=== PATIENT | female | born 1960 | race Caucasian/White ===

== ENCOUNTER 2017-05-22 13:39 | Emergency (ER) | payer OTHER ==
[~2017-05-22] VITALS: Ht 149.9 cm; Wt 68.0 kg
[2017-05-22 14:50] VITALS: Ht 149.9 cm; Wt 68.0 kg
[2017-05-22 17:32] VITALS: BP 127/78
== END 2017-05-22 17:32 | disposition home or self-care (01) ==
LOC: ED 13:39
DX: S01.511A Laceration without foreign body of lip, initial encounter (principal); J45.909 Unspecified asthma, uncomplicated; W54.0XXA Bitten by dog, initial encounter; Y93.89 Activity, other specified; Y99.8 Other external cause status; Y92.89 Other specified places as the place of occurrence of the external cause
CPT/HCPCS: J2001; J3010

== ENCOUNTER 2017-05-24 09:46 | Emergency (ER) | payer OTHER ==
[~2017-05-24] VITALS: Ht 154.9 cm; Wt 67.6 kg
[2017-05-24 09:50] VITALS: BP 148/83; Ht 154.9 cm; Wt 67.6 kg
== END 2017-05-24 10:52 | disposition home or self-care (01) ==
LOC: ED 09:46
DX: S01.85XD Open bite of other part of head, subsequent encounter (principal); W54.0XXD Bitten by dog, subsequent encounter

== ENCOUNTER 2017-05-26 09:22 | Emergency (ER) | payer OTHER ==
[~2017-05-26] VITALS: Ht 157.5 cm; Wt 67.6 kg
[2017-05-26 09:33] VITALS: BP 135/97; Ht 157.5 cm; Wt 67.6 kg
== END 2017-05-26 12:53 | disposition home or self-care (01) ==
LOC: ED 09:22
DX: S01.81XD Laceration without foreign body of other part of head, subsequent encounter (principal); S01.511D Laceration without foreign body of lip, subsequent encounter; W54.0XXD Bitten by dog, subsequent encounter